=== PATIENT | male | born 1975 | race African-American/Black ===

== ENCOUNTER 2022-02-06 10:22 | Observation (INO) | payer BC, SELFPAY ==
[2022-02-06] VITALS (8 sets, daily range): BP systolic 143–163; BP diastolic 80–108; PULSE 65–85; RESP 16–20; TEMP 35.8–37.7; O2SAT 98–100; BMI 27.9
--- NOTE | ~2022-02-06 | CT_ITS ---
EXAMINATION: CT abdomen pelvis wo con EXAM DATE: 02/06/2022 12:33 INDICATION: GI bleed, low abd pain, blood and mucus in stool x2+ days TECHNIQUE: Spiral CT of the abdomen and pelvis was performed without contrast. Axial, coronal and s agittal images of the abdomen and pelvis were reviewed. The dose-length product (DLP) for this exami nation was 511.40 mGy-cm. The exposure was tailored according to patient size (auto mA exposure cont rol), and iterative reconstruction (ASIR) was used as additional dose reduction technique. There is no prior study for comparison. FINDINGS: The liver, spleen, adrenal glands and pancreas are unremarkable. There is cholelithiasis w ithin an otherwise unremarkable gallbladder. No evidence of obstructive biliary disease. Left renal 8 mm hemorrhagic cyst. There is no nephrolithiasis or hydronephrosis. The prostate is unremarkable . The bladder is unremarkable. There is no retroperitoneal or pelvic lymphadenopathy. Small umbil ical fat-containing hernia. The appendix is normal. The stomach and small bowel are unremarkable. Suspect mild edema and fat st randing surrounding the rectum. Sigmoid colon is unremarkable. No pneumatosis intestinalis. No free i ntraperitoneal gas. The heart is normal in size. There are no pericardial or pleural effusions. T he lung bases are unremarkable. The bones are unremarkable. IMPRESSION: 1. Mild rectal vault wall inflammation, probably colitis. 2. Cholelithiasis. Reviewed, dictated and finalized at location A. [facility]
[2022-02-06 11:31] LABS: Basophils Absolute Auto 0.2 K/mm3 (0.0-0.1); Basophils Percent Auto 2.7 % (0.2-1.2); Eosinophils Absolute Auto 0.1 K/mm3 (0-0.3); Eosinophils Percent Auto 1.9 % (0-4.4); Hematocrit 37.5 % (42.0-52.0); Hemoglobin 12.6 g/dL (14.0-18.0); Immature Granulocyte Absolute 0.03 K/mm3 (0.00-0.031); Immature Granulocyte Percent A 0.5 % (0-0.5); Lymphocytes Percent Auto 32.8 % (18.3-44.2); Mean Corpuscular HGB Conc 33.6 g/dl (32-36); Mean Corpuscular Hemoglobin 28.4 pg (26-34); Mean Corpuscular Volume 84.7 fl (80-100); Mean Platelet Volume 11.1 fl (7.4-10.4); Monocytes Absolute Auto 0.7 K/mm3 (0.1-0.6); Monocytes Percent Auto 11.6 % (2.6-8.5); Neutrophils Absolute Auto 3.2 K/mm3 (1.3-6.7); Neutrophils Percent Auto 50.5 % (45.5-73.1); Platelet Count Result 288 k/mm3 (150-375); Red Blood Count 4.43 M/mm3 (4.6-6.20); Red Cell Distribution Width 13.7 % (11.5-14.5); White Blood Count 6.4 K/mm3 (4.5-10.0)
[2022-02-06 11:41] LABS: Potassium 4.4 mmol/L (3.4-5.0)
[2022-02-06 11:42] LABS: Prothrombin Time 12.7 Seconds (11.1-14.7)
[2022-02-06 11:48] LABS: Alanine Aminotransferase 10 U/L (4-50); Albumin Level 4.7 g/dL (3.5-5.1); Alkaline Phosphatase 88 U/L (38-126); Anion Gap 14 mmol/L (8-16); Aspartate Amino Transferase 23 U/L (17-59); Blood Urea Nitrogen 36 mg/dL (9-20); Calcium 9.1 mg/dL (8.4-10.2); Carbon Dioxide 27 mmol/L (22-30); Chloride 98 mmol/L (98-107); Estimated CRCL calculation 19 ml/min; Estimated Glomerular Filt Rate 15; Glucose 87 mg/dL (65-110); Sodium 139 mmol/L (137-145)
--- NOTE | 2022-02-06 12:19 | ED.GIBLEED ---
HPI - GI Bleed General Chief complaint: GI Bleed Stated complaint: blood in stool Time Seen by Provider: 02/06/22 11:45 Source: patient Mode of arrival: other (via police) Limitations: no limitations History of Present Illness HPI Narrative: This is a 46-year-old male that presents to the emergency department for rectal bleeding noted over the last couple of days. Reports of bright red blood noted in the stool. No previous similar episodes. He takes clopidogrel daily. Associated with lower abdominal discomfort. Denies fever, vomiting, or dysuria. Related Data Home Medications Medication Instructions Recorded Confirmed amlodipine DAILY 02/06/22 clopidogrel 75 mg PO DAILY 02/06/22 docusate sodium [Colace] PO BID 02/06/22 furosemide 80 mg PO BID 02/06/22 labetalol 300 mg PO Q12H 02/06/22 levetiracetam 250 mg PO BID 02/06/22 losartan 50 mg PO BID 02/06/22 polyethylene glycol 3350 17 g PO BID PRN 02/06/22 Allergies Allergy/AdvReac Type Severity Reaction Status Date / Time No Known Allergies Allergy Verified 02/06/22 10:57 Review of Systems Review of Systems: CONSTITUTIONAL: Denies fever GASTROINTESTINAL: Reports abdominal pain. Denies nausea, vomiting, or diarrhea. GENITOURINARY: Denies dysuria All systems reviewed & are unremarkable except as noted in HPI and below PMFSH Past Medical History Medical History (Updated 02/06/22 @ 13:37 by Gely Jj PA-C) History of end stage renal disease History of hyperlipidemia History of hypertension Social History Social History (Updated 02/06/22 @ 12:22 by Gely Jj PA-C) Substance use: never Exam Narrative: GENERAL: Well-appearing, well-nourished, and in no acute distress. HEAD: Normocephalic, atraumatic. EYES: EOMI. CHEST: Clear to auscultation. No respiratory distress. No wheezes rales or rhonchi HEART: Regular rate and rhythm. No murmur heard. Normal peripheral pulses. ABDOMEN: Soft, nontender, nondistended, normal active bowel sounds. EXTREMITIES: Normal range of motion. No edema. SKIN: Warm, dry, no rash. NEURO: No focal deficits. Alert and oriented x3. PSYCH: Normal mood and affect RECTAL: No obvious hemorrhoids or fissures on exam. Hemoccult positive Course Consultations Consultation #1: Spoke with hospitalist about patient and work-up who accepts admission. Date: 02/06/22 Consultation #2: Spoke with GI, Dr. Mohr who will consult. Date: 02/06/22 Consultation #3: Spoke with nephrology, Dr. Perez who will consult for patient's dialysis. Date: 02/06/22 Vital Signs Vital signs: Vital Signs Temperature 97.3 F L 02/06/22 10:25 Pulse Rate 85 02/06/22 10:25 Respiratory Rate 16 02/06/22 10:25 Blood Pressure 151/98 H 02/06/22 10:25 Pulse Oximetry 99 02/06/22 10:25 Temperature 97.3 F L 02/06/22 10:25 Pulse Rate 77 02/06/22 11:24 Respiratory Rate 16 02/06/22 10:25 Blood Pressure 147/95 H 02/06/22 11:24 Pulse Oximetry 99 02/06/22 10:25 MDM - GI Bleed MDM Narrative Medical decision making narrative: Patient presents to the emergency department for GI bleeding noted over the last couple of days. Also reporting lower abdominal pain and rectal pain. He is afebrile and nontoxic-appearing. His vitals are stable. Hemoglobin is noted to be 12.6. Metabolic panel with evidence of patient's end-stage renal disease. No concerning electrolyte derangements. CT scan of the abdomen and pelvis shows probable colitis. Patient was updated on case findings. Patient will be admitted for further monitoring of H&H and IV antibiotics. Spoke with hospitalist about patient and work-up who accepts admission. Spoke with GI, Dr. Mohr who will consult. Spoke with Dr. Perez who will consult for patient's dialysis. Lab Data Attestation: I reviewed the patient's lab results. Result diagrams: 02/06/22 11:15 02/06/22 11:15 Labs: Lab Results 02/06/22 02/06/22 02/06/22 Range/Units 11:1
[2022-02-06 15:29] LABS: Hematocrit 36.9 % (42.0-52.0); Hemoglobin 12.1 g/dL (14.0-18.0)
--- NOTE | 2022-02-06 16:16 | ADMGEN ---
This patient, Fredy Slater, was admitted to Medical Room 347-. Patient/family oriented to hospital policies and general routines including ID bracelet, bed and alarms, visiting hours, pain management, procedures, bathroom and other care routines, personal items, smoking policy, room service/diet, and visiting hours. Information on how to activate the Rapid Response Team has been discussed. Patient/Family are encouraged to report perceived risks to care and to ask questions if they do not understand what they are told or what they should do.
--- NOTE | 2022-02-06 17:14 | WPDGICN ---
Assessment and Plan Assessment and plan (1) Acute GI bleeding: Code(s): K92.2 - Gastrointestinal hemorrhage, unspecified Status: Acute Assessment and Plan: rectal bleeding and CT scan suggests possible colitis. Uncertain whether this could be infectious. The onset is rather acute for inflammatory bowel disease, and ischemic colitis would involve a more proximal area such as the sigmoid colon or splenic flexure. Colonoscopy will be done tomorrow morning. I explained to him the prep and the procedure including the use of sedation and possible risks such as bleeding or perforation (2) Colitis: Code(s): K52.9 - Noninfective gastroenteritis and colitis, unspecified Status: Acute Assessment and Plan: this CT scan finding. I personally reviewed it and see only minimal changes in the rectum (3) Anemia: Code(s): D64.9 - Anemia, unspecified Status: Acute Assessment and Plan: hemoglobin slightly low at 12.1. (4) ESRD on dialysis: Code(s): N18.6 - End stage renal disease; Z99.2 - Dependence on renal dialysis Status: Acute Assessment and Plan: Creatinine is 5. I believe he is due for dialysis tomorrow GI Consult Note Consult date/time: 02/06/22 17:14 HPI: Fredy Slater is a 46 year old male who presents to the emergency room with complaints of blood in his stools. He states that his bowel movements have been normal but he has seen blood for the past 24 hours. He denies having abdominal pain or fever. He has not had diarrhea recently. He denies inserting anything into his rectum. There is no family history of inflammatory bowel disease or other colon disorders to his knowledge. CT scan shows apparent colitis based on the fact that there is edema in the wall of the rectum. Review of Systems Review of Systems: All systems reviewed & are unremarkable except as noted in HPI and below PMFSH Past Medical History Medical History History of end stage renal disease History of hyperlipidemia History of hypertension Family History Family History Other Unknown family medical history Social History Social History Smoking packs per day: 0.3 Smoking cigarettes per day: 6.0 Years smoked: 20 Smoking pack-years: 6.00 Smoking status: Former smoker Tobacco type: cigarettes Alcohol intake: current Drinks per week: 1 Substance use: never Spiritual care concerns: No Meds Home Medications and Allergies Home Medications Medication Instructions Recorded Confirmed Type amlodipine DAILY 02/06/22 History clopidogrel 75 mg PO DAILY 02/06/22 History docusate sodium [Colace] PO BID 02/06/22 History furosemide 80 mg PO BID 02/06/22 History labetalol 300 mg PO Q12H 02/06/22 History levetiracetam 250 mg PO BID 02/06/22 History losartan 50 mg PO BID 02/06/22 History polyethylene glycol 3350 17 g PO BID PRN 02/06/22 History Allergies Allergy/AdvReac Type Severity Reaction Status Date / Time No Known Allergies Allergy Verified 02/06/22 10:57 Vital Signs Vital Signs - 24 hr 02/06/22 10:25 02/06/22 11:22 02/06/22 11:23 Temperature 36.3 C L Pulse Rate 85 71 72 Respiratory Rate 16 Blood Pressure 151/98 H 163/108 H 143/96 H Pulse Oximetry 99 02/06/22 11:24 02/06/22 14:56 Temperature 36.4 C Pulse Rate 77 74 Respiratory Rate 16 Blood Pressure 147/95 H 150/80 H Pulse Oximetry 98 Exam Const: General: alert Orientation/consciousness: patient oriented x3 Resp: Auscultation: clear to auscultation bilaterally Cardio: Rhythm: regular rhythm GI: GI Palp: Yes Soft to palpation and No Tenderness to palpation present (GI) Neuro: General: patient oriented x3 Results Labs CBC & Chem 7: 02/06/22 15:25 02/06/22 11:15
[2022-02-06] MEDS: polyethylene glycoL 3350 238 GM BOTTLE PO (17:50)
--- NOTE | 2022-02-06 19:00 | PM.IMHP ---
H&P: HPI History of Present Illness Date/Time: 02/06/22 19:00 Chief Complaint: Blood in stool. Narrative: This is a pleasant 46-year-old male with history of stroke, seizure, hypertension, and end-stage renal disease on hemodialysis who presented to the emergency department via EMS for evaluation of blood in stool. His bowel movements have been normal however yesterday he noticed bright red blood on the toilet tissue and he has noticed bright red blood and mucus coating the stool over the past couple of days. He has a fullness feeling in the rectum and mild lower abdominal discomfort, but nothing significant. CT of the abdomen and pelvis showed edema/inflammation of the wall of the rectum and his stool was Hemoccult positive on rectal exam and he is being admitted in this setting. He has never had similar symptoms in the past and has no personal or family history of inflammatory bowel disease or colorectal cancer. He has no history of hemorrhoids and denies straining with bowel movements. He has no history of anal intercourse and he denies inserting anything into his rectum. He has not had fever, chills, or sweats. No nausea or vomiting. Review of Systems Review of Systems: Twelve systems were reviewed. Patient has residual left-sided weakness from a stroke in June 2021. It sounds as though he had cerebral edema associated with that stroke and he is on levetiracetam for presumed history of seizure related to that, or for prophylaxis. He is on dialysis due to longstanding uncontrolled hypertension of which he was asymptomatic for quite some time. He has been on dialysis since July 2021. He still urinates. Except as documented, all other systems were reviewed and are negative. [facility] Past Medical History Medical History (Updated 02/06/22 @ 23:58 by Kelli Quispe PA-C) Cerebrovascular accident (06/2021) Residual left-sided weakness. End-stage renal disease on hemodialysis On dialysis Saturday at [facility]. Hypertension Seizure Surgical History Surgical History (Updated 02/06/22 @ 23:54 by Kelli Quispe PA-C) Status post creation of arteriovenous fistula Left upper extremity. Family History Family History (Updated 02/06/22 @ 23:54 by Kelli Quispe PA-C) Father Cerebral aneurysm Other Hypertension Unknown family medical history Social History Social History (Updated 02/06/22 @ 23:56 by Kelli Quispe PA-C) Social History: The patient is currently incarcerated in [facility]. He has 4 children. Former smoker, about 1 pack every 3 days. No history of alcohol or substance abuse. Surrogate decision maker: Julee Slater. Code status: Full code. Meds Home Medications and Allergies Home Medications Medication Instructions Recorded Confirmed Type amlodipine 10 mg PO DAILY 02/06/22 02/06/22 History clopidogrel 75 mg PO DAILY 02/06/22 02/06/22 History docusate sodium [Colace] 100 mg PO BID 02/06/22 02/06/22 History furosemide 80 mg PO BID 02/06/22 02/06/22 History labetalol 300 mg PO BID 02/06/22 02/06/22 History levetiracetam 250 mg PO BID 02/06/22 02/06/22 History losartan 50 mg PO BID 02/06/22 02/06/22 History polyethylene glycol 3350 17 g PO BID PRN 02/06/22 02/06/22 History Allergies Allergy/AdvReac Type Severity Reaction Status Date / Time No Known Allergies Allergy Verified 02/06/22 10:57 Vital Signs Vital Signs - 24 hr 02/06/22 10:25 02/06/22 11:22 02/06/22 11:23 Temperature 97.3 F L Pulse Rate 85 71 72 Respiratory Rate 16 Blood Pressure 151/98 H 163/108 H 143/96 H Pulse Oximetry 99 02/06/22 11:24 02/06/22 14:56 02/06/22 17:58 Temperature 97.6 F 99.9 F H Pulse Rate 77 74 65 Respiratory Rate 16 20 Blood Pressure 147/95 H 150/80 H 158/84 H Pulse Oximetry 98 100 02/06/22 20:00 02/06/22 20:08 Temperature 96.5 F L Pulse Rate 67 Respiratory Rate 17 Blood Pressure 154/88 H Pulse Oximetry 100 100 Exam Narrative: Jeremy
[2022-02-06 21:31] LABS: Hematocrit 36.6 % (42.0-52.0); Hemoglobin 11.9 g/dL (14.0-18.0)
[2022-02-07] VITALS (28 sets, daily range): BP systolic 106–184; BP diastolic 42–112; PULSE 64–103; RESP 14–22; TEMP 36.4–37; O2SAT 96–100
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
[2022-02-07 05:39] LABS: Hematocrit 35.1 % (42.0-52.0); Hemoglobin 11.8 g/dL (14.0-18.0); Mean Corpuscular HGB Conc 33.6 g/dl (32-36); Mean Corpuscular Hemoglobin 28.3 pg (26-34); Mean Corpuscular Volume 84.2 fl (80-100); Mean Platelet Volume 10.5 fl (7.4-10.4); Platelet Count Result 269 k/mm3 (150-375); Red Blood Count 4.17 M/mm3 (4.6-6.20); Red Cell Distribution Width 13.4 % (11.5-14.5); White Blood Count 6.9 K/mm3 (4.5-10.0)
[2022-02-07 05:47] LABS: Albumin Level 4.2 g/dL (3.5-5.1); Anion Gap 10 mmol/L (8-16); Blood Urea Nitrogen 39 mg/dL (9-20); Calcium 9.1 mg/dL (8.4-10.2); Carbon Dioxide 29 mmol/L (22-30); Chloride 99 mmol/L (98-107); Estimated CRCL calculation 17 ml/min; Estimated Glomerular Filt Rate 14; Glucose 99 mg/dL (65-110); Magnesium 2.2 mg/dL (1.6-2.3); Phosphorus 5.7 mg/dL (2.5-4.5); Potassium 4.1 mmol/L (3.4-5.0); Sodium 138 mmol/L (137-145)
--- NOTE | 2022-02-07 06:31 | PC.NURSE ---
Pt's BM is watery and without solids, colored light brown
[2022-02-07 07:06] LABS: Hepatitis B Surface Antigen Negative (Negative)
[2022-02-07 07:12] LABS: HAV RESULT Negative (Negative); Hepatitis B Core IgM Result Negative (Negative)
[2022-02-07 07:24] LABS: Hepatitis B Surface Anti Res Negative; Hepatitis C Virus Antibody Negative (Negative)
[2022-02-07 09:25] LABS: Lactate Dehydrogenase 294 U/L (313-618)
--- NOTE | 2022-02-07 09:30 | P.PNIM_ITS ---
Progress Note: A&P Assessment and Plan (1) Rectal bleeding: Code(s): K62.5 - Hemorrhage of anus and rectum Status: Acute Assessment and Plan: * Reports melana and rectal bleeding * CT of the Abdomen shows colitis and inflammation * Dr. Mohr consulted, thank you for your help * Colonoscopy today * H/H stable at 11.8/35.1, down from 12.6/37.5 at admission * trend H/H (2) Colitis: Code(s): K52.9 - Noninfective gastroenteritis and colitis, unspecified Status: Acute Assessment and Plan: * CT shows mild inflammation in the rectal vault wall * Zosyn given in the emergency department * Colonoscopy in the am * WBC is 6.9 * No indication to continue antibiotics at this time (3) End-stage renal disease on hemodialysis: Code(s): N18.6 - End stage renal disease; Z99.2 - Dependence on renal dialysis Status: Acute Assessment and Plan: * BUN/Cr 39/5.50 * Dialysis patient * Dr. Perez consulted * Dialysis today * Daily weights (4) Hypertension: Code(s): I10 - Essential (primary) hypertension Status: Acute Assessment and Plan: * 164/99 currently * Continue home amlodipine 10mg PO Daily, labetalol 300mg PO BID, Losartan 50mg PO BID * Trend BP * Adjust therapy as indicated (5) Anemia: Code(s): D64.9 - Anemia, unspecified Status: Acute Assessment and Plan: * H/H 11.8/35.1 * Mild normocytic anemia * Trend H/H * Seems stable at this time * Anemia labs: Iron 107, TIBC 255, % sat 42, Transferrin 211, Ferritin 385, LDH 294, B12 553, Folate 6.6 (6) Seizure: Code(s): R56.9 - Unspecified convulsions Status: Acute Assessment and Plan: * Continue levetiracetam. (7) History of cerebrovascular accident: Code(s): Z86.73 - Personal history of transient ischemic attack (TIA), and cerebral infarction without residual deficits Status: Acute Assessment and Plan: * Plavix currently on hold given rectal bleeding * He will also need an aspirin at some point Time Spent With Patient Time with patient: Greater than 35 minutes Subjective Date/time seen: 02/07/22 09:30 Interval history: Date/Time: 02/06/22 19:00 Narrative: This is a pleasant 46-year-old male with history of stroke, seizure, hypertension, and end-stage renal disease on hemodialysis who presented to the emergency department via EMS for evaluation of blood in stool. His bowel movements have been normal however yesterday he noticed bright red blood on the toilet tissue and he has noticed bright red blood and mucus coating the stool over the past couple of days. He has a fullness feeling in the rectum and mild lower abdominal discomfort, but nothing significant. CT of the abdomen and pelvis showed edema/inflammation of the wall of the rectum and his stool was Hemoccult positive on rectal exam and he is being admitted in this setting. He has never had similar symptoms in the past and has no personal or family history of inflammatory bowel disease or colorectal cancer. He has no history of hemorrhoids and denies straining with bowel movements. He has no history of anal intercourse and he denies inserting anything into his rectum. He has not had fever, chills, or sweats. No nausea or vomiting. Date/Time 02/07/22 0930 Patient was getting dialysis when I went in to see him. Maria Luisa
--- NOTE | 2022-02-07 09:30 | PM.IMPN ---
Progress Note: A&P Assessment and Plan (1) Rectal bleeding: Code(s): K62.5 - Hemorrhage of anus and rectum Status: Acute Assessment and Plan: Reports melana and rectal bleeding CT of the Abdomen shows colitis and inflammation Dr. Mohr consulted, thank you for your help Colonoscopy today H/H stable at 11.8/35.1, down from 12.6/37.5 at admission trend H/H (2) Colitis: Code(s): K52.9 - Noninfective gastroenteritis and colitis, unspecified Status: Acute Assessment and Plan: CT shows mild inflammation in the rectal vault wall Zosyn given in the emergency department Colonoscopy in the am WBC is 6.9 No indication to continue antibiotics at this time (3) End-stage renal disease on hemodialysis: Code(s): N18.6 - End stage renal disease; Z99.2 - Dependence on renal dialysis Status: Acute Assessment and Plan: BUN/Cr 39/5.[address] Perez consulted Dialysis today Daily weights (4) Hypertension: Code(s): I10 - Essential (primary) hypertension Status: Acute Assessment and Plan: 164/99 currently Continue home amlodipine 10mg PO Daily, labetalol 300mg PO BID, Losartan 50mg PO BID Trend BP Adjust therapy as indicated (5) Anemia: Code(s): D64.9 - Anemia, unspecified Status: Acute Assessment and Plan: H/H 11.8/35.1 Mild normocytic anemia Trend H/H Seems stable at this time Anemia labs: Iron 107, TIBC 255, % sat 42, Transferrin 211, Ferritin 385, LDH 294, B12 553, Folate 6.6 (6) Seizure: Code(s): R56.9 - Unspecified convulsions Status: Acute Assessment and Plan: Continue levetiracetam. (7) History of cerebrovascular accident: Code(s): Z86.73 - Personal history of transient ischemic attack (TIA), and cerebral infarction without residual deficits Status: Acute Assessment and Plan: Plavix currently on hold given rectal bleeding He will also need an aspirin at some point Time Spent With Patient Time with patient: Greater than 35 minutes Subjective Date/time seen: 02/07/22 09:30 Interval history: Date/Time: 02/06/22 19:00 Narrative: This is a pleasant 46-year-old male with history of stroke, seizure, hypertension, and end-stage renal disease on hemodialysis who presented to the emergency department via EMS for evaluation of blood in stool. His bowel movements have been normal however yesterday he noticed bright red blood on the toilet tissue and he has noticed bright red blood and mucus coating the stool over the past couple of days. He has a fullness feeling in the rectum and mild lower abdominal discomfort, but nothing significant. CT of the abdomen and pelvis showed edema/inflammation of the wall of the rectum and his stool was Hemoccult positive on rectal exam and he is being admitted in this setting. He has never had similar symptoms in the past and has no personal or family history of inflammatory bowel disease or colorectal cancer. He has no history of hemorrhoids and denies straining with bowel movements. He has no history of anal intercourse and he denies inserting anything into his rectum. He has not had fever, chills, or sweats. No nausea or vomiting. Date/Time 02/07/22 0930 Patient was getting dialysis when I went in to see him. Patient stated that he had watery stools and roughly 5 episodes throughout the night. He also stated that he had no red or purple or black stool. He denies any chest pain, shortness of breath, nausea, vomiting. Patient will be going for colonoscopy today after gets somewhat dialysis. He denies any further complaints at this time. He was concerned about having the colonoscopy. Review of Systems Review of Systems: All systems reviewed & are unremarkable except as noted in HPI and below Exam Const: General: cooperative, healthy appearing, n
[2022-02-07 09:33] LABS: Transferrin 211 mg/dL (206-381)
[2022-02-07 10:33] LABS: Folic Acid 6.6 ng/mL (2.76->20)
[2022-02-07 10:42] LABS: Iron 107 ug/dL (49-181)
[2022-02-07 10:56] LABS: Percent Iron Saturation 42 % (20-50)
--- NOTE | 2022-02-07 11:04 | PM.CNNEP ---
Assessment and Plan Assessment and plan (1) End stage renal disease: Code(s): N18.6 - End stage renal disease Status: Chronic Assessment and Plan: HD today and continue Sat/Sat/Saturday dialysis schedule follow electrolytes, volume status, and clearance (2) Rectal bleeding: Code(s): K62.5 - Hemorrhage of anus and rectum Status: Acute Assessment and Plan: as noted by history imaging reviewed Gastroenterology recommendations noted colonoscopy today (3) Hypertension: Code(s): I10 - Essential (primary) hypertension Status: Chronic Assessment and Plan: elevated at this time follow trend post dialysis resume home medications (4) Anemia: Code(s): D64.9 - Anemia, unspecified Status: Chronic Assessment and Plan: H/H supratherapeutic for ESRD holding Epogen follow H/H Will continue to follow. History of Present Illness Reason for Consult Consult date: 02/07/22 Reason for consult: end stage renal disease Chief Complaint Chief complaint: GI Bleed,, colitis, ESRD on dialysis History of Present Illness Narrative: The patient is a 46-year-old male with a past medical history as outlined below who presented to [facility] Emergency room with complaints of blood in his stools. The patient reports that has bowel movements had been normal however on the day before admission, he noted bright red blood on the toilet paper as well as bright red blood and mucus over his stools for the last few days. He also reports a abdominal fullness feeling in his rectal area in association of some mild lower abdominal discomfort. Because of the persistence of the symptoms, he presented to the ER for further evaluation. Workup and evaluation emergency room demonstrated the patient to be hemodynamically stable and routine blood test demonstrated labs consistent with his known history of end-stage renal disease with stable electrolytes and a CBC with a fairly preserved hemoglobin and hematocrit. However, given his symptoms, a CT scan of the abdomen pelvis was done which showed edema / inflammation of the rectal wall. Furthermore, he was Hemoccult positive by rectal exam as well. He reports no similar symptoms like this in the past and denies any history of inflammatory bowel disease or colorectal cancer. . He denies any history of hemorrhoids or having to strain with bowel movements. No other systemic symptoms with regard to fevers, chills, nausea, vomiting, or night sweats. Given his constellation of symptoms and imaging / laboratory findings, he was admitted the hospital for further evaluation and therapy. Since admission, his hemoglobin hematocrit has been relatively stable and he was seen by Gastroenterology yesterday afternoon with a tentative plan for colonoscopy this afternoon for further evaluation of his symptoms. He tolerated the bowel prep yesterday evening without any issues or problems. Renal consultation was requested due to his end-stage renal disease. The patient normally dialyzes on a Saturday, Saturday, Saturday dialysis schedule at [facility] under the care of Dr. Dockery. He currently dialyzes through a tunneled dialysis catheter although he does have a AV access in place but I believe there is been some problems in cannulating this shunt. He did receive dialysis on Saturday on his normal schedule without any issue or problems as far as I am aware. On presentation to the emergency room, he had no evidence or symptoms of volume overload, critical electrolyte abnormalities, metabolic acidosis, or uremia. Currently, the patient is receiving dialysis at the time of my dictation and appears to be tolerating it reasonably well (seen on HD at 10:45 AM). Review of Systems Review of Systems: As per HPI. [facility] Past Medical History Medical History (Updated 02/07/22 @ 18:28 by Sukh Perez MD) Acute GI bleeding Cer
--- NOTE | 2022-02-07 13:03 | WPDANESEPPF ---
Anes - Initial Pre Proc Eval Procedure: Operation Date: 02/07/22 14:30 Proposed Procedures p Colonoscopy - Pj Mohr MD Date/Time: 02/07/22 13:03 Surgeon: Chitra De Jseus MD Pre Op Diagnosis: GI Bleed,, colitis, ESRD on dialysis Patient Data Age: 46 Gender: M Height: 1.83 m Weight: 93.2 kg Last Vital Signs Temp 37.0 C 02/07/22 12:57 Pulse 85 02/07/22 12:57 Resp 19 02/07/22 12:57 BP 174/112 H 02/07/22 12:57 Pulse Ox 96 02/07/22 03:30 Allergies Allergy/AdvReac Type Severity Reaction Status Date / Time No Known Allergies Allergy Verified 02/06/22 10:57 Home Medications Medication Instructions Recorded Confirmed Type amlodipine 10 mg PO DAILY 02/06/22 02/06/22 History clopidogrel 75 mg PO DAILY 02/06/22 02/06/22 History docusate sodium [Colace] 100 mg PO BID 02/06/22 02/06/22 History furosemide 80 mg PO BID 02/06/22 02/06/22 History labetalol 300 mg PO BID 02/06/22 02/06/22 History levetiracetam 250 mg PO BID 02/06/22 02/06/22 History losartan 50 mg PO BID 02/06/22 02/06/22 History polyethylene glycol 3350 17 g PO BID PRN 02/06/22 02/06/22 History Laboratory Tests 02/06/22 02/06/22 02/06/22 11:15 15:25 21:18 WBC RBC Hgb 12.1 g/dL L g/dL 11.9 g/dL L g/dL (14.0-18.0) (14.0-18.0) Hct 36.9 % L % 36.6 % L % (42.0-52.0) (42.0-52.0) MCV MCH MCHC RDW Plt Count MPV Sodium Potassium Chloride Carbon Dioxide Anion Gap BUN Creatinine Estim Creat Clear Calc Estimated GFR Glucose Calcium Phosphorus Magnesium Iron TIBC % Saturation Transferrin Ferritin Lactate Dehydrogenase Albumin Vitamin B12 Folate Hepatitis A IgM Ab Hep Bs Antigen Hep Bs Antibody Hep B Core IgM Ab Hepatitis C Ab Screen Blood Type O Positive Antibody Screen Negative 03/08/2302/07/22 02/07/22 05:20 05:20 05:20 WBC 6.9 K/mm3 K/mm3 (4.5-10.0) RBC 4.17 M/mm3 L M/mm3 (4.6-6.20) Hgb 11.8 g/dL L g/dL (14.0-18.0) Hct 35.1 % L % (42.0-52.0) MCV 84.2 fl fl (80-100) MCH 28.3 pg pg (26-34) MCHC 33.6 g/dl g/dl (32-36) RDW 13.4 % % (11.5-14.5) Plt Count 269 k/mm3 k/mm3 (150-375) MPV 10.5 fl H fl (7.4-10.4) Sodium 138 mmol/L mmol/L (137-145) Potassium 4.1 mmol/L mmol/L (3.4-5.0) Chloride 99 mmol/L mmol/L (98-107) Carbon Dioxide 29 mmol/L mmol/L (22-30) Anion Gap 10 mmol/L mmol/L (8-16) BUN 39 mg/dL H mg/dL (9-20) Creatinine 5.50 mg/dL H mg/dL (0.7-1.3) Estim Creat Clear Calc 17 ml/min ml/min Estimated GFR 14 L (59 - ) Glucose 99 mg/dL mg/dL (65-110) Calcium 9.1 mg/dL mg/dL (8.4-10.2) Phosphorus 5.7 mg/dL H mg/dL (2.5-4.5) Magnesium 2.2 mg/dL mg/dL (1.6-2.3) Iron TIBC % Saturation Transferrin Ferritin Lactate Dehydrogenase Albumin 4.2 g/dL g/dL (3.5-5.1) Vitamin B12 Folate Hepatitis A IgM Ab Negative (Negative) Hep Bs Antigen Negative (Negative) Hep Bs Antibody Negative Hep B Core IgM Ab Negative (Negative) Hepatitis C Ab Screen Negative (Negative) Blood Type Antibody Screen 02/07/22 02/07/22 05:20 05:20 WBC RBC Hgb Hct MCV MCH
[2022-02-07] MEDS: amLODIPine BESYLATE 5 MG TABLET 10 MG PO (13:07)
[2022-02-07] MEDS: LABETALOL HCL 100 MG TABLET 300 MG PO ×2 (13:07→17:23)
[2022-02-07] MEDS: FUROSEMIDE 80 MG TABLET PO ×2 (13:08→17:23)
[2022-02-07] MEDS: LOSARTAN POTASSIUM 50 MG TABLET PO ×2 (13:08→17:24)
[2022-02-07] MEDS: levETIRAcetam 250 MG TABLET PO ×2 (13:08→20:52)
[2022-02-07] MEDS: SODIUM CHLORIDE 0.9% IV 500 ML 10 ML IV CONT (13:21)
[2022-02-07] MEDS: SIMETHICONE ORAL SUSPENSION 20 MG/0.3 ML 30 ML BOTTLE PO (14:21)
[2022-02-08 03:21] VITALS: BP 126/79; PULSE 81; RESP 17; TEMP 36.8; O2SAT 99
[2022-02-08 05:28] LABS: Basophils Absolute Auto 0.2 K/mm3 (0.0-0.1); Basophils Percent Auto 1.9 % (0.2-1.2); Eosinophils Absolute Auto 0.1 K/mm3 (0-0.3); Eosinophils Percent Auto 1.7 % (0-4.4); Hematocrit 38.7 % (42.0-52.0); Hemoglobin 12.5 g/dL (14.0-18.0); Immature Granulocyte Absolute 0.05 K/mm3 (0.00-0.031); Immature Granulocyte Percent A 0.6 % (0-0.5); Lymphocytes Absolute Auto 2.21 K/mm3 (0.9-3.2); Lymphocytes Percent Auto 26.4 % (18.3-44.2); Mean Corpuscular HGB Conc 32.3 g/dl (32-36); Mean Corpuscular Volume 86.8 fl (80-100); Mean Platelet Volume 11.1 fl (7.4-10.4); Monocytes Percent Auto 11.5 % (2.6-8.5); Neutrophils Absolute Auto 4.8 K/mm3 (1.3-6.7); Neutrophils Percent Auto 57.9 % (45.5-73.1); Platelet Count Result 267 k/mm3 (150-375); Red Blood Count 4.46 M/mm3 (4.6-6.20); Red Cell Distribution Width 13.7 % (11.5-14.5); White Blood Count 8.4 K/mm3 (4.5-10.0)
[2022-02-08 05:42] LABS: Alanine Aminotransferase 9 U/L (4-50); Albumin Level 4.6 g/dL (3.5-5.1); Alkaline Phosphatase 94 U/L (38-126); Anion Gap 12 mmol/L (8-16); Aspartate Amino Transferase 25 U/L (17-59); Bilirubin,Total 0.8 mg/dL (0.2-1.3); Blood Urea Nitrogen 31 mg/dL (9-20); Calcium 9.2 mg/dL (8.4-10.2); Carbon Dioxide 26 mmol/L (22-30); Chloride 98 mmol/L (98-107); Estimated CRCL calculation 19 ml/min; Estimated Glomerular Filt Rate 15; Glucose 100 mg/dL (65-110); Lactate Dehydrogenase 270 U/L (313-618); Magnesium 2.1 mg/dL (1.6-2.3); Potassium 4.5 mmol/L (3.4-5.0); Sodium 136 mmol/L (137-145)
[2022-02-08 05:44] LABS: D Dimer 0.32 ug/mL (<0.48)
[2022-02-08] MEDS: EPOETIN ALFA 4,000 UNITS/ML VIAL 4000 UNITS IV PUSH (07:34)
[2022-02-08 08:47] VITALS: PULSE 82
[2022-02-08] MEDS: LABETALOL HCL 100 MG TABLET 300 MG PO (08:47)
[2022-02-08] MEDS: FUROSEMIDE 80 MG TABLET PO (08:47)
[2022-02-08] MEDS: LOSARTAN POTASSIUM 50 MG TABLET PO (08:47)
[2022-02-08] MEDS: DOCUSATE SODIUM 100 MG CAPSULE PO (08:47)
[2022-02-08] MEDS: levETIRAcetam 250 MG TABLET PO (08:47)
[2022-02-08] MEDS: amLODIPine BESYLATE 5 MG TABLET 10 MG PO (08:47)
--- NOTE | 2022-02-08 09:15 | PM.PNNEP ---
Progress Note: A&P Assessment and Plan (1) End stage renal disease: Code(s): N18.6 - End stage renal disease Status: Chronic Assessment and Plan: HD tomorrow and continue Sat/Sat/Saturday dialysis schedule follow electrolytes, volume status, and clearance (2) Rectal bleeding: Code(s): K62.5 - Hemorrhage of anus and rectum Status: Acute Assessment and Plan: as noted by history imaging reviewed Gastroenterology recommendations noted colonoscopy yesterday with findings of internal hemorrhoids H/H stable (3) Hypertension: Code(s): I10 - Essential (primary) hypertension Status: Chronic Assessment and Plan: better control at this time resume home medications follow trend of hemodynamics (4) Anemia: Code(s): D64.9 - Anemia, unspecified Status: Chronic Assessment and Plan: H/H supratherapeutic for ESRD holding Epogen follow H/H Will continue to follow. Subjective Date/time seen: 02/08/22 09:15 Tolerated dialysis yesterday as well as colonoscopy without any acute issues or problems; no events overnight or earlier this AM; no apparent distress at this time. Exam Narrative: General: WD/WN AA male in NAD Heart: normal S1 and S2; no rub Lungs: clear to auscultation Abdomen: soft, nontender, nondistended, positive bowel sounds Extremities: no cyanosis or clubbing; no edema Skin: warm and dry Objective Data Vital Signs Vital Signs: Vital Signs Temp Pulse Resp BP Pulse Ox 02/08/22 08:47 82 02/08/22 03:21 36.8 C 81 17 126/79 99 02/07/22 19:35 36.6 C 90 17 136/83 100 02/07/22 17:23 90 02/07/22 15:35 36.9 C 87 20 134/84 100 02/07/22 14:46 101 H 20 137/80 100 02/07/22 14:36 100 20 122/75 98 02/07/22 14:26 102 H 22 H 112/75 98 02/07/22 13:30 36.8 C 103 H 18 168/92 H 100 02/07/22 13:07 85 02/07/22 12:57 37.0 C 85 19 174/112 H 02/07/22 12:41 97 184/107 H 02/07/22 12:30 96 170/109 H Intake/Output Intake/Output: Intake & Output 02/05/22 02/06/22 02/07/22 02/08/22 23:59 23:59 23:59 23:59 Intake Total 410 720 900 Output Total 3000 Balance 410 -2280 900 Meds/Results Medications: Active Medications Generic Name Dose Route Start Last Admin Trade Name Neisha PRN Reason Stop Dose Admin Amlodipine Besylate 10 mg 02/07/22 09:00 02/08/22 08:47 Amlodipine Besylate 5 Mg Tablet PO 10 mg DAILY LAISHA Administration Docusate Sodium 100 mg 02/07/22 09:00 02/08/22 08:47 Docusate Sodium 100 Mg Capsule PO 100 mg BID LAISHA Administration Furosemide 80 mg 02/07/22 09:00 02/08/22 08:47 Furosemide 80 Mg Tablet PO 80 mg BID LAISHA Administration Albumin Human 50 mls @ 999 mls/hr 02/07/22 07:13 Albutein IVPB 03/09/22 07:12 Q10M PRN HYPOTENSION Labetalol HCl 300 mg 02/07/22 00:05 02/08/22 08:47 Labetalol Hcl 100 Mg Tablet PO 300 mg BID LAISHA Administration Levetiracetam 250 mg 02/07/22 00:05 02/08/22 08:47 Levetiracetam 250 Mg Tablet PO 250 mg Q12HR LAISHA Administration Losartan Potassium 50 mg 02/07/22 09:00 02/08/22 08:47 Losartan Potassium 50 Mg Tablet PO 50 mg BID LAISHA Administration Radiology Results: ITS Impressions Abdomen/Pelvis CT 02/06/22 12:36 IMPRESSION: 1. Mild rectal vault wall inflammation, probably colitis. 2. Cholelithiasis. Labs Labs: Laboratory Tests 02/08/22 04:59 02/08/22 04:59
--- NOTE | 2022-02-08 10:14 | WPDANESPN ---
Anes - Prog Note Post-Op Date/Time: 02/08/22 10:14 Cardiovascular status: normal Respiratory status: normal Airway patency: baseline Mental status: baseline Post-Op hydration status: normal Vital Signs: Last Vital Signs Temp 36.8 C 02/08/22 03:21 Pulse 82 02/08/22 08:47 Resp 17 02/08/22 03:21 BP 126/79 02/08/22 03:21 Pulse Ox 99 02/08/22 03:21 Pain Score (VAS): 0 I/O: Intake & Output 02/07/22 02/08/22 02/08/22 23:59 07:59 15:59 Intake Total 480 540 360 Balance 480 540 360 Laboratory Tests 02/08/22 04:59 02/08/22 04:59 02/07/22 02/07/22 02/08/22 05:20 05:20 04:59 WBC 8.4 RBC 4.46 L Hgb 12.5 L Hct 38.7 L MCV 86.8 MCH 28.0 MCHC 32.3 RDW 13.7 Plt Count 267 MPV 11.1 H Immature Gran % (Auto) 0.6 H Neut % (Auto) 57.9 Lymph % (Auto) 26.4 Bill[place] % (Auto) 11.5 H Eos % (Auto) 1.7 Baso % (Auto) 1.9 H Lymph # (Auto) 2.21 [place] # (Auto) 1.0 H Eos # (Auto) 0.1 Baso # (Auto) 0.2 H Abs Immat Gran (auto) 0.05 H Absolute Neuts (auto) 4.8 Absolute Nucleated RBC 0.0 Nucleated RBC % 0.0 D-Dimer Sodium Potassium Chloride Carbon Dioxide Anion Gap BUN Creatinine Estim Creat Clear Calc Estimated GFR Glucose Calcium Magnesium Iron 107 TIBC 255 L % Saturation 42 Ferritin 385.00 Total Bilirubin AST ALT Alkaline Phosphatase Lactate Dehydrogenase Total Protein Albumin Vitamin B12 553.0 Folate 6.6 02/08/22 02/08/22 02/08/22 04:59 04:59 04:59 WBC RBC Hgb Hct MCV MCH MCHC RDW Plt Count MPV Immature Gran % (Auto) Neut % (Auto) Lymph % (Auto) [place] % (Auto) Eos % (Auto) Baso % (Auto) Lymph # (Auto) [place] # (Auto) Eos # (Auto) Baso # (Auto) Abs Immat Gran (auto) Absolute Neuts (auto) Absolute Nucleated RBC Nucleated RBC % D-Dimer 0.32 Sodium 136 L Potassium 4.5 Chloride 98 Carbon Dioxide 26 Anion Gap 12 BUN 31 H Creatinine 5.10 H Estim Creat Clear Calc 19 Estimated GFR 15 L Glucose 100 Calcium 9.2 Magnesium 2.1 Iron TIBC % Saturation Ferritin 450.00 Total Bilirubin 0.8 AST 25 ALT 9 Alkaline Phosphatase 94 Lactate Dehydrogenase 270 L Total Protein 8.0 Albumin 4.6 Vitamin B12 Folate Post-procedural complaints: none Patient Feedback: Patient satisfied with anesthetic care.
--- NOTE | 2022-02-08 10:45 | P.DS_ITS ---
DS: Admitting Diagnosis Discharge Date 02/08/22 1045 Admitting Diagnosis Acute GI bleed DS: Discharge Diagnosis Discharge Diagnosis (1) Rectal bleeding: Code(s): K62.5 - Hemorrhage of anus and rectum Status: Acute Assessment and Plan: * Reports melana and rectal bleeding * CT of the Abdomen shows colitis and inflammation * Dr. Mohr consulted, thank you for your help * Colonoscopy today * H/H stable at 12.5/38.7, down from 12.6/37.5 at admission * trend H/H (2) Colitis: Code(s): K52.9 - Noninfective gastroenteritis and colitis, unspecified Status: Acute Assessment and Plan: * CT shows mild inflammation in the rectal vault wall * Zosyn given in the emergency department * Colonoscopy in the am * WBC is 8.4 * No indication to continue antibiotics at this time (3) End-stage renal disease on hemodialysis: Code(s): N18.6 - End stage renal disease; Z99.2 - Dependence on renal dialysis Status: Acute Assessment and Plan: * BUN/Cr 31/5.10 * Dialysis patient * Dr. Perez consulted * Dialysis today * Daily weights (4) Hypertension: Code(s): I10 - Essential (primary) hypertension Status: Chronic Assessment and Plan: * 126/79 currently * Continue home amlodipine 10mg PO Daily, labetalol 300mg PO BID, Losartan 50mg PO BID * Trend BP * Adjust therapy as indicated (5) Anemia: Code(s): D64.9 - Anemia, unspecified Status: Chronic Assessment and Plan: * H/H 12.5/38.7 * Mild normocytic anemia * Trend H/H * Seems stable at this time * Anemia labs: Iron 107, TIBC 255, % sat 42, Transferrin 211, Ferritin 385, LDH 294, B12 553, Folate 6.6 (6) Seizure: Code(s): R56.9 - Unspecified convulsions Status: Acute Assessment and Plan: * Continue levetiracetam. (7) History of cerebrovascular accident: Code(s): Z86.73 - Personal history of transient ischemic attack (TIA), and cerebral infarction without residual deficits Status: Acute Assessment and Plan: * Plavix currently on hold given rectal bleeding * He will also need an aspirin at some point DS: Summary Hospital Course Hospital Course: Patient is a 46-year-old male with past medical history CVA, CH F, end-stage renal disease on hemodialysis, hyperlipidemia, hypertension, and seizure who presented to the ED for evaluation of blood in the stool. Patient reported that his bowel movements have been normal however the day of admission patient was noted to have bright red blood on the toilet tissue and in the stool. CT of the abdomen and pelvis showed edema and inflammation of the rectal wall. Occult blood was positive. Hemoglobin hematocrit did fall slightly from 12.6-11.8. H&H currently 12.5/38.7. GI was consulted and patient was taken for colonoscopy colposcopy did present with a couple of polyps however no bleeding was noted. Patient also received dialysis and 3000 mL was removed. Blood pressures have been stable. Dr. Perez was consulted to manage the dialysis and has noted patient continues Saturday schedule. Anemia labs were also obtained which showed no deficiencies of his time. Patient is stable for discharge including current labs and vital signs. He denies any complaints including chest pain, shortness of breath, nausea, vomiting, or constipation. S
--- NOTE | 2022-02-08 10:45 | PM.DS ---
DS: Admitting Diagnosis Discharge Date 02/08/22 1045 Admitting Diagnosis Acute GI bleed DS: Discharge Diagnosis Discharge Diagnosis (1) Rectal bleeding: Code(s): K62.5 - Hemorrhage of anus and rectum Status: Acute Assessment and Plan: Reports melana and rectal bleeding CT of the Abdomen shows colitis and inflammation Dr. Mohr consulted, thank you for your help Colonoscopy today H/H stable at 12.5/38.7, down from 12.6/37.5 at admission trend H/H (2) Colitis: Code(s): K52.9 - Noninfective gastroenteritis and colitis, unspecified Status: Acute Assessment and Plan: CT shows mild inflammation in the rectal vault wall Zosyn given in the emergency department Colonoscopy in the am WBC is 8.4 No indication to continue antibiotics at this time (3) End-stage renal disease on hemodialysis: Code(s): N18.6 - End stage renal disease; Z99.2 - Dependence on renal dialysis Status: Acute Assessment and Plan: BUN/Cr 31/5.[address] Perez consulted Dialysis today Daily weights (4) Hypertension: Code(s): I10 - Essential (primary) hypertension Status: Chronic Assessment and Plan: 126/79 currently Continue home amlodipine 10mg PO Daily, labetalol 300mg PO BID, Losartan 50mg PO BID Trend BP Adjust therapy as indicated (5) Anemia: Code(s): D64.9 - Anemia, unspecified Status: Chronic Assessment and Plan: H/H 12.5/38.7 Mild normocytic anemia Trend H/H Seems stable at this time Anemia labs: Iron 107, TIBC 255, % sat 42, Transferrin 211, Ferritin 385, LDH 294, B12 553, Folate 6.6 (6) Seizure: Code(s): R56.9 - Unspecified convulsions Status: Acute Assessment and Plan: Continue levetiracetam. (7) History of cerebrovascular accident: Code(s): Z86.73 - Personal history of transient ischemic attack (TIA), and cerebral infarction without residual deficits Status: Acute Assessment and Plan: Plavix currently on hold given rectal bleeding He will also need an aspirin at some point DS: Summary Hospital Course Hospital Course: Patient is a 46-year-old male with past medical history CVA, CHF, end-stage renal disease on hemodialysis, hyperlipidemia, hypertension, and seizure who presented to the ED for evaluation of blood in the stool. Patient reported that his bowel movements have been normal however the day of admission patient was noted to have bright red blood on the toilet tissue and in the stool. CT of the abdomen and pelvis showed edema and inflammation of the rectal wall. Occult blood was positive. Hemoglobin hematocrit did fall slightly from 12.6-11.8. H&H currently 12.5/38.7. GI was consulted and patient was taken for colonoscopy colposcopy did present with a couple of polyps however no bleeding was noted. Patient also received dialysis and 3000 mL was removed. Blood pressures have been stable. Dr. ePrez was consulted to manage the dialysis and has noted patient continues Saturday schedule. Anemia labs were also obtained which showed no deficiencies of his time. Patient is stable for discharge including current labs and vital signs. He denies any complaints including chest pain, shortness of breath, nausea, vomiting, or constipation. Status at Discharge Functional status at discharge: independent ambulation Overall status at discharge: patient is progressing back to baseline Time Spent with Patient Time attestation: Total time spent providing and/or coordinating discharge services: 42 minutes Time spent: Greater than 30 minutes Specific discharge activities: Diagnostic testing, chart review, developing a treatment plan, education, care coordination documentation, physical exam, result review Exam Const: General: cooperative, healthy appearing, no acute dis
--- NOTE | 2022-02-08 12:41 | PC.NURSE ---
Dr. demetrice narvaezed cj.
== END 2022-02-08 13:00 | disposition other institution (70) ==
LOC: ANHED 13:37 → ANH3MED 14:04
PROVIDERS: Internal Medicine Gastroenterology; Internal Medicine Nephrology; Physician Assistant; Admitting Provider Internal Medicine; Emergency Provider Emergency Medicine; PCP Nurse Practitioner Family; Visit Provider Nurse Practitioner
PROC: 0DJD8ZZ Inspection of Lower Intestinal Tract, Via Natural or Artificial Opening Endoscopic (ICD-10-PCS; CPT 45378; principal; 2022-02-07 14:30)
DX: K62.5 Hemorrhage of anus and rectum (principal); K52.9 Noninfective gastroenteritis and colitis, unspecified; D64.9 Anemia, unspecified; K64.8 Other hemorrhoids; R10.30 Lower abdominal pain, unspecified; I12.0 Hypertensive chronic kidney disease with stage 5 chronic kidney disease or end stage renal disease; E78.5 Hyperlipidemia, unspecified; G40.909 Epilepsy, unspecified, not intractable, without status epilepticus; I69.351 Hemiplegia and hemiparesis following cerebral infarction affecting right dominant side; N18.6 End stage renal disease; Z99.2 Dependence on renal dialysis; Z79.02 Long term (current) use of antithrombotics/antiplatelets
CPT/HCPCS: 45378; 36415; 74176; 80053; 80069; 80074; 82607; 82728; 82746; 83540; 83550; 83615; 83735; 84466; 85014; 85018; 85025; 85027; 85380; 85610; 85730; 86706; 86850; 86900; 86901; 96360; 96365; 99285; A9270; G0257; G0378; G0379; J1644; J2543; J2704; J7030; J7040; P9047; Q4081